=== PATIENT | male | born 1955 | race Caucasian/White ===

== ENCOUNTER 2022-04-11 10:16 | Emergency (ER) | payer MEDICAID ==
[~2022-04-11] VITALS: Ht 165.1 cm; Wt 73.0 kg
[2022-04-11] MEDS ORDERED: IBUPROFEN 400MG TABLET PO ONE (11:45)
[2022-04-11 12:09] VITALS: BP 138/66
[2022-04-11] MEDS ORDERED: NAPR500T7 MT (15:01)
== END 2022-04-11 15:43 | disposition home or self-care (01) ==
LOC: ER 10:16
DX: S52.592A Other fractures of lower end of left radius, initial encounter for closed fracture (principal); S52.612A Displaced fracture of left ulna styloid process, initial encounter for closed fracture; W17.89XA Other fall from one level to another, initial encounter; Y93.89 Activity, other specified; Y92.488 Other paved roadways as the place of occurrence of the external cause
CPT/HCPCS: 29125; 73090; 73110; 73130; 99284